=== PATIENT | female | born 1995 | race Caucasian/White ===

== ENCOUNTER 2016-10-13 22:29 | Inpatient (IN) | payer OTHER ==
[~2016-10-13] VITALS: Ht 165.1 cm; Wt 75.6 kg
[2016-10-13 22:31] VITALS: Ht 165.1 cm; Wt 75.6 kg
[2016-10-13 22:32] VITALS: BP 132/86; PULSE 76; RESP 18
[2016-10-13] MEDS ORDERED: FERR325C PO (22:45)
[2016-10-13] MEDS ORDERED: PREN1TAB62 PO (22:45)
[2016-10-13] MEDS ORDERED: LACTATED RINGER'S 1,000 ML IV PRN (23:00)
[2016-10-13] MEDS ORDERED: OXYTOCIN 30 UNITS/LR 500 ML IV SCH (23:00)
[2016-10-13] MEDS ORDERED: LIDOCAINE 1% (MPF) 30 ML INJ INJ PRN (23:00)
[2016-10-13] MEDS ORDERED: MISOPROSTOL 200 MCG TAB PR PRN (23:00)
[2016-10-13] MEDS ORDERED: METHYLERGONOVINE 0.2 MG INJ IM PRN (23:00)
[2016-10-13] MEDS ORDERED: BUTORPHANOL 2 MG INJ IV PRN ×2 (23:00)
[2016-10-13] MEDS ORDERED: IBUPROFEN 600 MG TAB PO PRN (23:00)
[2016-10-13] MEDS ORDERED: OXYTOCIN 30 UNITS/LR 500 ML IV PRN (23:00)
[2016-10-13] MEDS ORDERED: CARBOPROST 250 MCG INJ IM PRN (23:00)
[2016-10-13] MEDS: LACTATED RINGER'S 1,000 ML IV SCH (23:00)
[2016-10-13] MEDS ORDERED: ACETAMINOPHEN/CODEINE #3 TAB PO PRN (23:00)
[2016-10-13 23:26] LABS: BASOPHIL # 0.1 10^3/ul (0.0-0.1); BASOPHILS % 1.1 % (0.0-2.0); EOSINOPHILS % 0.4 % (0.0-7.0); HEMATOCRIT 39.6 % (37.0-47.0); HEMOGLOBIN 13.6 g/dl (12.0-16.0); LYMPHOCYTES # 2.3 10^3/ul (0.8-2.9); LYMPHOCYTES % 18.8 % (15.0-51.0); MEAN CORPUSCULAR HEMOGLOBIN 32.3 pg (29.0-33.0); MEAN CORPUSCULAR HGB CONC 34.4 g/dl (32.0-37.0); MEAN CORPUSCULAR VOLUME 93.9 fl (82.0-101.0); MEAN PLATELET VOLUME 8.7 fl (7.4-10.4); MONOCYTE # 0.6 10^3/ul (0.3-0.9); MONOCYTES % 4.9 % (0.0-11.0); NEUTROPHIL # 9.2 10^3/ul (1.6-7.5); NEUTROPHILS % 74.8 % (39.0-77.0); PLATELET COUNT 271 10^3/UL (140-440); RED BLOOD COUNT 4.22 10^6/ul (4.20-5.40); RED CELL DISTRIBUTION WIDTH 15.6 % (11.5-14.5); UNCORRECTED WBC 12.3 10^3/ul (4.8-10.8); WHITE BLOOD COUNT 12.3 10^3/ul (4.8-10.8)
[2016-10-13 23:30] LABS: CONDITION 1; LH ANALYZER COMMENTS 1
--- NOTE | 2016-10-13 23:31 | TRIAGE ---
OB Triage Datetime Report Generated by CPN: 10/13/2016 23:30 Datetime: 10/13/2016 23:00 Maternal Assessment Level of Consciousness: Fully Conscious DTR's/Clonus: No Clonus Headache: Denies Blurred Vision: No Nausea/Vomiting: Denies RUQ Epigastric Pain: Denies Facial Edema: None Labor Evaluation Frequency: 2-3 Monitor Mode: External Duration (sec)2399: 60-120 Quality: Mild Pattern: Normal: <= 5 Contractions in 10 Minutes Resting Tone [place]: Relaxed Heart Rate FHR Baseline Rate: 150 Monitor Mode: External US Variability: Moderate 6-25 bpm Accelerations: 15X15 Decelerations: None Category: Category I Pain Assessment Pain Scale: 4 Pain Presence: Intermittent Pain Type: Contraction Pain Location: Abdomen; Back Pain Goal: 8 Pain Relief Measures: Comfort Measures Membrane Status: Intact Datetime: 10/13/2016 22:48 EGA: 39.3 Datetime: 10/13/2016 22:45 Stage of : OB Triage Assessment Type: Triage Maternal Assessment Level of Consciousness: Fully Conscious DTR's/Clonus: DTRs 2+; No Clonus Headache: Denies Blurred Vision: No Respiratory Effort: Unlabored; Regular Rhythm; Equal Expansion Breath Sounds, Left: Clear and Equal Breath Sounds, Right: Clear and Equal Nausea/Vomiting: Denies RUQ Epigastric Pain: Denies Lower Extremities Edema: Bilateral Lower Extremities Degree: 1+ Upper Extremities Edema: None Degree: None Facial Edema: None Temperature Route: Axillary Fall Risk Assessment History of Falling: (0) No Secondary Diagnosis: (0) No Ambulatory Aid: (0) Bedrest/Nurse Assist IV Therapy: (0) No Gait: (0) Normal/Bedrest/Immobile Mental Status: (0) Oriented to Own Ability Fall Score: 0 Fall Risk Score Definition: No Risk: No action required Monitor Mode: External Monitor Mode: External US Pain Assessment Pain Scale: 4 Pain Presence: Intermittent Pain Type: Contraction Pain Goal: 8 Pain Relief Measures: Comfort Measures Vaginal Exam Dilatation (cms): 3.0 Effacement (%): 80 Station: -1 Datetime: 10/13/2016 22:33 Time of Arrival: 10/13/2016 22:49 Arrived By: Ambulatory Arrived From: Home Chief Complaint: CONTRACTIONS SINCE 1400. DENIES LEAKING. Movement: Present Contractions: Irregular Time Contractions Began: 10/13/2016 14:00 Rupture of Membranes: Denies Vaginal Bleeding: Normal Show Vaginal Discharge: Present Recent Sexual Intercouse: Yes Abdominal Trauma: Not Applicable Patient Complaints: Contractions Time Provider Notified: 10/13/2016 22:50 Provider Notified: DR STARR Initial Plan: APPLY MONITORS, CALL
[2016-10-13 23:32] LABS: INR 0.79; PARTIAL THROMBOPLASTIN TIME 25.2 Sec (25.0-35.0); PT RATIO 0.9
--- NOTE | 2016-10-14 02:54 | HP ---
Date/Time of Note Date/Time of Note DATE: 10/14/16 TIME: 02:49 OB - History Hx of Present Free Text/Dictation 21 Year-old G1 with SIUP at 39 3/7 presents with a chief complaint of UCS. She has been receiving her care with [facility]/Dr. Blair. She states good movement. She denies nausea, vomiting, shortness of breath, chest pain, and abdominal pain between contractions, headache, visual changes, vaginal bleeding or LOF. Chief Complaint: uterine contractions Estimated Due Date: Oct 17, 2016 : 1 Care: Good Care Ultrasounds: Normal mid trimester US Obstetrical Complications: None Medical Complications: None Past Family/Social History * Past Medical, Surgical, Family and Obstetric Histories reviewed from chart. Blood Type: A- Rubella: immune RPR/VDRL: Negative GBS Status: Negative HBsAG: Negative OB Admission Exam Vital Signs Vital Signs Vital Signs Date Time Temp Pulse Resp B/P Pulse Ox O2 Delivery O2 Flow Rate FiO2 10/13/16 22:32 98.0 76 18 132/86 Room Air Physical Exam HEENT: WNL Heart: Rhythm Normal Lungs: Clear Abdomen: WNL Extremities: Normal Cervical Dilatation: 3cm Effacement: 75% Station: -3 Membranes: Intact Heart Rate: 140's Accelerations: Accelerations Present Decelerations: No Decelerations Varibility: Moderate Contractions on Admission: < 5 Minutes Apart Intensity: Moderate Last 72 hours Lab Results CBC & BMP 10/13/16 23:00 OB Assessment/Plan Other plan: Assessment/Plan: 21 Year-old G1 with SIUP at 39 3/7 - FHR: No sign of metabolic acidosis- Category I - Continuous EFM, toco - CBC, blood type and screen - Analgesia options with R/B/A discussed in detail with patient - Epidural per patient request - Please see the orders - A neg/Rubella: Immune/GBS negative Admission, procedures, expectations, risks and possible complications have been discussed in detail with the patient. Risk of vaginal delivery including but not limited to bleeding, infection, cervical laceration, placental retention, injury to fetus, blood transfusion, blood transfusion related infection, risk of anesthesia, adhesion, cervical laceration, episiotomy/laceration, possible delivery with risk of bleeding, infection, injury to other organs ( bowel, bladder, ureter, vessels, nerves), injury to fetus, blood transfusion, blood transfusion related infection, risk of anesthesia, scar and hernia formation, needs for future , removal of uterus or any other indicated surgery discussed with the patient. She expressed understanding and repeats the risks. All of her questions were answered; all appropriate consents will be signed. PHYSICIAN'S VERIFICATION OF INFORMED CONSENT: The patient was counseled regarding the procedure, its indications, risks, potential complications and alternatives and any questions were answered. Consent was obtained. PLANNED PROCEDURE/TREATMENT: Vaginal delivery with possible vacuum/forceps delivery episiotomy, repair of laceration possible delivery PHYSICIAN'S VERIFICATION OF INFORMED CONSENT FOR BLOOD TRANSFUSION: There is a reasonable possibility that blood transfusion will be necessary as a result of the patient's procedure. I have discussed the following with the patient/patient's legal patient access representative: An explanation of the benefits and risks of the transfusion of blood or blood products and the possible alternatives. Al questions have been answered to the patient's/patients legal representatives satisfaction. INFORMED CONSENT: The patient has been informed of: - The nature of the proposed care, treatment, services, medications, interventions or procedures. - Potential benefits, risks or side effects, including potential problems related to recuperation. - The likelihood of achieving care treatment and service goals. - Reasonable alternatives to the proposed care, treatment and service. - The relevant risks, benefits and side effects related to alternatives, including the possible results of not receiving care, treatment and services. - When indicated, any limitations on the confidentiality of information learned from or about the patient. IDA SATRR Oct 14, 2016 02:54
[2016-10-14] MEDS ORDERED: FENTAnyl 2MCG/ML-ROPIV 0.2% 100 ML ONE (03:11)
[2016-10-14] MEDS: LACTATED RINGER'S 1,000 ML IV SCH ×2 (03:13→04:32)
[2016-10-14] MEDS ORDERED: NALOXONE (0.4 MG/ML) INJ IV PRN (04:00)
[2016-10-14] MEDS ORDERED: FENTAnyl 2MCG/ML-ROPIV 0.2% 100 ML BAG EPI SCH (04:00)
[2016-10-14] MEDS ORDERED: LACTATED RINGER'S 1,000 ML IV* SCH (07:27)
[2016-10-14] MEDS ORDERED: DEXTROSE 5%-LR 1,000 ML IV SCH (07:27)
[2016-10-14] MEDS: OXYTOCIN 30 UNITS/LR 500 ML IV SCH ×4 (07:27→16:11)
[2016-10-14] MEDS ORDERED: DIBUCAINE 1% 30 GM OINT PR PRN ×2 (07:30→10:30)
[2016-10-14] MEDS ORDERED: ACETAMINOPHEN 325 MG TAB PO PRN ×2 (07:30→10:30)
[2016-10-14] MEDS ORDERED: OXYCODONE/ASPIRIN (4.88/325) TAB PO PRN ×3 (07:30→10:30)
[2016-10-14] MEDS ORDERED: OXYTOCIN 30 UNITS/LR 500 ML IV PRN (07:30)
[2016-10-14] MEDS ORDERED: DIPHENHYDRAMINE 50 MG INJ IV PRN (07:30)
[2016-10-14] MEDS ORDERED: ONDANSETRON 4 MG INJ IV PRN ×2 (07:30→10:30)
[2016-10-14] MEDS ORDERED: MISOPROSTOL 200 MCG TAB PR PRN (07:30)
[2016-10-14] MEDS ORDERED: LANOLIN 7 GM TUBE TOP PRN ×2 (07:30→10:30)
[2016-10-14] MEDS ORDERED: BENZOCAINE 20% 56 ML SPRAY TOP PRN ×2 (07:30→10:30)
[2016-10-14] MEDS ORDERED: METHYLERGONOVINE 0.2 MG INJ IM PRN (07:30)
[2016-10-14] MEDS ORDERED: SENNA/DOCUSATE NA (8.6MG/50MG) TAB PO PRN (07:30)
[2016-10-14] MEDS ORDERED: CARBOPROST 250 MCG INJ IM PRN (07:30)
[2016-10-14] MEDS ORDERED: WITCH HAZEL/GLYCERIN PAD PR PRN ×2 (07:30→10:30)
[2016-10-14] MEDS ORDERED: ZOLPIDEM 5 MG TAB PO PRN (07:30)
--- NOTE | 2016-10-14 07:33 | LDN ---
Date/Time of Note Date/Time of Note DATE: 10/14/16 TIME: 07:30 Delivery Summary 21 y/o G at 394/7 wks delivered afemale over 1 cm first degree lac at right vaginal wall, : 8/9, weight: 6 lbs 11 oz. Time of delivery: 07:09 Placenta Delivered: Spontaneously Meconium: Thick Perineum intact?: No ( cm first degree lac at right vaginal wall) Anesthesia type: Epidural Estimated blood loss: 150 Sponge & Needle done & correct: Yes All needle counts correct: Yes Any foreign bodies felt in the: No Problems: Infant Delivery Information Sex Infant Sex: female Apgars 1 Minute: 8 5 Minute: 9 10 Minute: 10 Suctioning Nose & mouth suctioned at [place]: No Delee suction performed: Yes Umbilical Cord Umbilical cord with: 3 Vessels Cord presentations: no nuchal cord Cord Blood was obtained: Yes IDA STARR Oct 14, 2016 07:33
[2016-10-14 10:20] VITALS: BP 126/78; PULSE 63; RESP 18
[2016-10-14] MEDS ORDERED: ACETAMINOPHEN/CODEINE #3 TAB PO PRN ×2 (10:30)
[2016-10-14] MEDS: IBUPROFEN 600 MG TAB PO SCH ×2 (11:42→17:28)
[2016-10-14] MEDS ORDERED: IBUPROFEN 600 MG TAB PO SCH (12:00)
[2016-10-14 16:00] VITALS: BP 114/69; PULSE 68; RESP 18
[2016-10-14 20:00] VITALS: BP 103/70; PULSE 87; RESP 20
[2016-10-14] MEDS: SENNA/DOCUSATE NA (8.6MG/50MG) TAB PO SCH (21:23)
[2016-10-15] MEDS: IBUPROFEN 600 MG TAB PO SCH ×4 (00:14→17:29)
[2016-10-15 00:30] VITALS: BP 106/67; PULSE 86; RESP 20
[2016-10-15 04:45] VITALS: BP 107/68; PULSE 68; RESP 20
[2016-10-15 08:00] VITALS: BP 101/50; PULSE 70; RESP 18
[2016-10-15 08:18] LABS: BASOPHILS % 0.4 % (0.0-2.0); EOSINOPHILS # 0.1 10^3/ul (0.0-0.5); EOSINOPHILS % 0.7 % (0.0-7.0); HEMATOCRIT 35.8 % (37.0-47.0); HEMOGLOBIN 12.3 g/dl (12.0-16.0); LYMPHOCYTES # 2.7 10^3/ul (0.8-2.9); MEAN CORPUSCULAR HEMOGLOBIN 32.9 pg (29.0-33.0); MEAN CORPUSCULAR HGB CONC 34.4 g/dl (32.0-37.0); MEAN CORPUSCULAR VOLUME 95.5 fl (82.0-101.0); MEAN PLATELET VOLUME 8.4 fl (7.4-10.4); MONOCYTE # 0.6 10^3/ul (0.3-0.9); MONOCYTES % 4.7 % (0.0-11.0); NEUTROPHIL # 8.3 10^3/ul (1.6-7.5); NEUTROPHILS % 71.2 % (39.0-77.0); PLATELET COUNT 206 10^3/UL (140-440); RED BLOOD COUNT 3.75 10^6/ul (4.20-5.40); RED CELL DISTRIBUTION WIDTH 15.8 % (11.5-14.5); UNCORRECTED WBC 11.6 10^3/ul (4.8-10.8); WHITE BLOOD COUNT 11.6 10^3/ul (4.8-10.8)
[2016-10-15 08:46] LABS: CONDITION 1; LH ANALYZER COMMENTS 1
[2016-10-15] MEDS: SENNA/DOCUSATE NA (8.6MG/50MG) TAB PO SCH ×2 (09:41→21:50)
[2016-10-15 16:00] VITALS: BP 111/66; PULSE 82; RESP 19
--- NOTE | 2016-10-15 18:05 | PN ---
Date/Time of Note Date/Time of Note DATE: 10/15/16 TIME: 18:05 OB Subjective Subjective Subjective Post normal vaginal delivery day 1 afebrile vital signs stable lochia normal abdomen soft uterus firm extremity normal Laboratory Tests Test 10/15/16 07:22 Basophils # 0.010^3/ul Basophils % 0.4% Blood Morphology Comment Eosinophils # 0.110^3/ul Eosinophils % 0.7% Hematocrit 35.8% Hemoglobin 12.3g/dl Lymphocytes # 2.710^3/ul Lymphocytes % 23.0% Mean Corpuscular Hemoglobin 32.9pg Mean Corpuscular Hemoglobin Concent 34.4g/dl Mean Corpuscular Volume 95.5fl Mean Platelet Volume 8.4fl Monocytes # 0.610^3/ul Monocytes % 4.7% Neutrophils # 8.310^3/ul Neutrophils % 71.2% Nucleated Red Blood Cells # 0.010^3/ul Nucleated Red Blood Cells % 0.0/100WBC Platelet Count 61251^3/UL Red Blood Count 3.7510^6/ul Red Cell Distribution Width 15.8% White Blood Count 11.610^3/ul Current Medications Medications (Trade) Dose Ordered Sig/Cain Route PRN Reason Start Time Stop Time Status Last Admin Dose Admin Lactated Ringer's (Lr) 1,000 ml @ 125 mls/hr Q8H IV 10/13/16 22:48 10/14/16 07:32 DC 10/14/16 04:32 Butorphanol Tartrate (Stadol) 1 mg Q2H PRN IV PAIN 10/13/16 23:00 10/14/16 10:22 DC Butorphanol Tartrate (Stadol) 2 mg Q2H PRN IV PAIN 10/13/16 23:00 10/14/16 10:22 DC Lidocaine 30 ml 30 ml ONCE PRN INJ EPISIOTOMY/TEARING 10/13/16 23:00 10/14/16 10:22 DC Oxytocin/Lactated Ringer's 500 ml @ 125 mls/hr ONCE -MAY REPEAT X1 IV 10/13/16 23:00 10/14/16 10:21 DC Oxytocin/Lactated Ringer's 500 ml @ 125 mls/hr ONCE IV 10/13/16 23:00 10/14/16 10:21 DC 10/14/16 07:46 Ibuprofen (Motrin) 600 mg ONCE PRN PO Mild Pain (Pain Score 1-3) 10/13/16 23:00 10/14/16 10:22 DC 10/14/16 09:52 Acetaminophen/ Codeine Phosphate 2 tab 2 tab ONCE PRN PO Moderate to Severe Pain (4-10) 10/13/16 23:00 10/14/16 10:21 DC Lactated Ringer's 1,000 ml @ 1,000 mls/hr Q1H PRN IV PRE-EPIDURAL BOLUS 10/13/16 23:00 10/14/16 07:34 DC Oxytocin/Lactated Ringer's 500 ml @ 0 mls/hr ONCE PRN IV For Hemorrhage Management 10/13/16 23:00 10/14/16 07:32 DC Methylergonovine Maleate (Methergine) 0.2 mg ONCE PRN IM VAGINAL BLEEDING 10/13/16 23:00 10/14/16 07:32 DC Carboprost Tromethamine (Hemabate) 250 mcg ONCE PRN IM VAGINAL BLEEDING 10/13/16 23:00 10/14/16 07:32 DC Misoprostol 1000 mcg 1,000 mcg ONCE PRN NV VAGINAL BLEEDING 10/13/16 23:00 10/14/16 07:32 DC Fentanyl/ Ropivacaine 100 ml @ STK-MED ONCE .ROUTE 10/14/16 03:11 10/14/16 03:12 DC Naloxone HCl (Narcan) 0.2 mg Q2M PRN IV FOR RESP RATE 8 OR LESS 10/14/16 04:00 10/14/16 10:22 DC Fentanyl/ Ropivacaine 100 ml 100 ml EPIDURAL (PCEA) EPI 10/14/16 04:00 10/14/16 10:22 DC Lactated Ringer's (Lr) 1,000 ml @ 125 mls/hr Q8H IV* 10/14/16 07:27 10/14/16 10:21 DC Ibuprofen (Motrin) 600 mg Q6 PO 10/14/16 12:00 10/14/16 12:00 DC Acetaminophen (Tylenol Tab) 650 mg Q4H PRN PO PAIN LEVEL 1-5 10/14/16 07:30 10/14/16 10:21 DC Oxycodone/Aspirin (Percodan) 1 tab Q3H PRN PO PAIN LEVEL 1-5 10/14/16 07:30 10/14/16 10:22 DC Ondansetron HCl (Zofran Inj) 4 mg Q6H PRN IV NAUSEA AND/OR VOMITING 10/14/16 07:30 10/14/16 10:22 DC Diphenhydramine HCl (Benadryl) 25 mg Q6H PRN IV PRURITUS 10/14/16 07:30 10/14/16 10:22 DC Zolpidem Tartrate (Ambien) 5 mg QHS PRN PO INSOMNIA 10/14/16 07:30 10/14/16 10:22 DC Senna/Docusate Sodium (Senokot-S) 1 tab BID PRN PO CONSTIPATION 10/14/16 07:30 10/14/16 10:22 DC Witch Lina/ Glycerin (Tucks Pads) 1 pad BEDSIDE MEDICATION PRN NV HEMORRHOID/EPISIOTMY PAIN 10/14/16 07:30 10/14/16 10:22 DC Benzocaine (Dermoplast [place]) 1 spray BEDSIDE MEDICATION PRN TOP HEMORRHOID/EPISIOTMY PAIN 10/14/16 07:30 10/14/16 10:22 DC Dibucaine (Nupercainal) 1 applic BEDSIDE MEDICATION PRN NV HEMORRHOID/EPISIOTMY PAIN 10/14/16 07:30 10/14/16 10:22 DC Lanolin (Lgm-U-Shqafi) 1 applic BEDSIDE MEDICATION PRN TOP BEDSIDE FOR ALEJANDRO TO NIPPLES 10/14/16 07:30 10/14/16 10:22 DC Measles/Mumps/ Rubella Vaccine Live (Mmr Ii Vaccine) 0.5 ml ONCE ONCE SC* 10/16/16 09:00 10/16/16 09:00 DC Diphtheria/ Tetanus/Acell Pertussis 0.5 ml 0.5 ml ONCE ONCE IM* 10/16/16 09:00 10/16/16 09:00 DC Oxytocin/Lactated Ringer's 500 ml @ 0 mls/hr ONCE PRN IV For Hemorrhage Management 10/14/16 07:30 10/14/16 10:21 DC Methylergonovine Maleate (Methergine) 0.2 mg ONCE PRN IM VAGINAL BLEEDING 10/14/16 07:30 10/14/16 10:22 DC Carboprost Tromethamine (Hemabate) 250 mcg ONCE PRN IM VAGINAL BLEEDING 10/14/16 07:30 10/14/16 10:22 DC Misoprostol 1000 mcg 1,000 mcg ONCE PRN NV VAGINAL BLEEDING 10/14/16 07:30 10/14/16 10:22 DC Dextrose/Lactated Ringer's 1,000 ml @ 125 mls/hr Q8H IV 10/14/16 07:27 10/14/16 10:22 DC Oxytocin/Lactated Ringer's 500 ml @ 125 mls/hr Q4H IV 10/14/16 10:18 10/14/16 18:17 DC 10/14/16 16:11 Ibuprofen (Motrin) 600 mg Q6 PO 10/14/16 12:00 10/15/16 17:29 Acetaminophen (Tylenol Tab) 650 mg Q4H PRN PO PAIN LEVEL 1-5 10/14/16 10:30 Acetaminophen/ Codeine Phosphate (Tylenol No.3) 1 tab Q4H PRN PO PAIN LEVEL 1-5 10/14/16 10:30 Acetaminophen/ Codeine Phosphate (Tylenol No.3) 2 tab Q4H PRN PO PAIN LEVEL 6-10 10/14/16 10:30 Oxycodone/Aspirin (Percodan) 1 tab Q3H PRN PO PAIN LEVEL 1-5 10/14/16 10:30 Oxycodone/Aspirin (Percodan) 2 tab Q3H PRN PO PAIN LEVEL 6-10 10/14/16 10:30 Ondansetron HCl (Zofran Inj) 4 mg Q6H PRN IV NAUSEA AND/OR VOMITING 10/14/16 10:30 Senna/Docusate Sodium (Senokot-S) 1 tab BID PO 10/14/16 21:00 10/15/16 09:41 Witch Lina/ Glycerin (Tucks Pads) 1 pad BEDSIDE MEDICATION PRN NV HEMORRHOID/EPISIOTMY PAIN 10/14/16 10:30 10/14/16 11:39 Benzocaine (Dermoplast [place]) 1 spray BEDSIDE MEDICATION PRN TOP HEMORRHOID/EPISIOTMY PAIN 10/14/16 10:30 10/14/16 11:39 Dibucaine (Nupercainal) 1 applic BEDSIDE MEDICATION PRN NV HEMORRHOID/EPISIOTMY PAIN 10/14/16 10:30 Lanolin (Hek-R-Evqxes) 1 applic BEDSIDE MEDICATION PRN TOP BEDSIDE FOR ALEJANDRO TO NIPPLES 10/14/16 10:30 10/14/16 11:38 Measles/Mumps/ Rubella Vaccine Live (Mmr Ii Vaccine) 0.5 ml ONCE ONCE SC* 10/16/16 09:00 10/16/16 09:01 KAMLA MORA MD Oct 15, 2016 18:05
[2016-10-15 21:00] VITALS: BP 94/54; PULSE 76; RESP 18
[2016-10-16] MEDS: IBUPROFEN 600 MG TAB PO SCH ×3 (00:28→11:49)
[2016-10-16 04:00] VITALS: BP 109/69; PULSE 59; RESP 18
[2016-10-16] MEDS ORDERED: MEASLES,MUMPS,RUBELLA VACCINE INJ SC* ONE ×2 (09:00)
[2016-10-16] MEDS ORDERED: DIPHTH/TET/ACEL PERTUSS (ADULT) 0.5 ML VIAL IM* ONE (09:00)
[2016-10-16 09:05] VITALS: BP 109/71; PULSE 68; RESP 18
[2016-10-16] MEDS: SENNA/DOCUSATE NA (8.6MG/50MG) TAB PO SCH (10:25)
--- NOTE | 2016-10-16 13:48 | PD.PPDC ---
[employer] Discharge Instruction Condition Patient Condition: Good Diet Diet: Resume Regular Diet Wound/Drain Care Instructions Wound/Drain Care Instructions: Wash with soap and water Keep clean and dry Follow-up Follow-up with Physician: 2, Week/Weeks Return to clinic for [employer] [employer] Instructions: Fever greater than 101 Worsening abdominal pain More than 2 pads per hour KAMLA MORA MD Oct 16, 2016 13:48
--- NOTE | 2016-10-16 13:51 | DS ---
Date/Time of Note Date/Time of Note DATE: 10/16/16 TIME: 13:50 Obstetrical Discharge Record Final Diagnosis Final Diagnosis: Term delivered Vaginal Delivery Obstetrical Delivery: Spontaneous Condition on Discharge Physical Assessment Last Vitals: Vital sign is stable afebrile abdomen soft uterus firm lochia normal extremity normal post discharge home instructions given appointment in 2 weeks Voiding: Yes Bowel Movement: Yes Breast: Filling Calf Tenderness: No Patient Condition: Good KAMLA MORA MD Oct 16, 2016 13:51
== END 2016-10-16 15:50 | disposition home or self-care (01) | DRG 775 ==
LOC: OBT 22:29 → L-D 22:29 → OBT 22:57 → L-D 23:19 → PP1 10-14 10:16
PROVIDERS: ADMIT Obstetrics & Gynecology; ATTEND Obstetrics & Gynecology
PROC: 4A1HX4Z Monitoring of Products of Conception, Cardiac Electrical Activity, External Approach (ICD-10-PCS; 2016-10-13)
PROC: 10E0XZZ Delivery of Products of Conception, External Approach (ICD-10-PCS; principal; 2016-10-14)
PROC: 0HQ9XZZ Repair Perineum Skin, External Approach (ICD-10-PCS; 2016-10-14)
DX: O70.0 First degree perineal laceration during delivery (principal); Z3A.39 39 weeks gestation of pregnancy; Z37.0 Single live birth
CPT/HCPCS: 62319; 85025; 85610; 85730; 86592; 86850; 86885; 86900; 86901; 87340; 99464; A4310; G0463; J2590; J2790; J3010; J7120; J7121